=== PATIENT | male | born 1985 | race African-American/Black ===

== ENCOUNTER 2017-06-20 06:41 | Emergency (ER) | payer SELFPAY ==
--- NOTE | 2017-06-20 07:16 | ER Document Report ---
ED General - General Chief Complaint: Epigastric Pain Stated Complaint: EPIGASTRIC PAIN Time Seen by Provider: 06/20/17 07:12 Mode of Arrival: Ambulatory Information source: Patient Cannot obtain history due to: Uncooperative Notes: Patient is a 31-year-old male who presents to the ER today for 2 days of upper abdominal pain and 1 day of headache. Patient states that he has been seen 2 months ago for upper abdominal pain but that it "went away." Patient states that he has never seen a transfer operator for this or had an endoscopy. He admits to a lot of belching over the past 2 days, denies that the pain radiates anywhere. He has not tried anything for the pain. He denies any light or sound sensitivity with his headache, history of migraines. He states that he has been eating and drinking less because it "hurt my stomach." TRAVEL OUTSIDE OF THE [place] IN LAST 30 DAYS: No - Related Data Allergies/Adverse Reactions: No Known Allergies Allergy (Verified 05/06/13 04:40) Past Medical History - General Information source: Patient - Social History Smoking Status: Unknown if Ever Smoked Family History: Reviewed & Not Pertinent - Immunizations Hx Diphtheria, Pertussis, Tetanus Vaccination: Yes Review of Systems - Review of Systems Constitutional: No symptoms reported EENT: No symptoms reported Cardiovascular: No symptoms reported Respiratory: No symptoms reported Gastrointestinal: See HPI Genitourinary: No symptoms reported Male Genitourinary: No symptoms reported Musculoskeletal: No symptoms reported Skin: No symptoms reported Hematologic/Lymphatic: No symptoms reported Neurological/Psychological: See HPI Physical Exam - Notes Notes: PHYSICAL EXAMINATION: GENERAL: Uncomfortable appearing, lying in dark room, but in no acute distress. HEAD: Atraumatic, normocephalic. EYES: Pupils equal round and reactive to light, extraocular movements intact, sclera anicteric, conjunctiva are normal. NECK: Normal range of motion, supple without lymphadenopathy LUNGS: CTAB and equal. No wheezes rales or rhonchi. HEART: Regular rate and rhythm without murmurs ABDOMEN: Soft, epigastric tenderness. No guarding, no rebound BACK: no vertebral tenderness, normal ROM GI/: no CVA tenderness EXTREMITIES: Normal range of motion, no pitting edema. No cyanosis. NEUROLOGICAL: Cranial nerves grossly intact. Normal sensory/motor exams. PSYCH: Normal mood, normal affect. SKIN: Warm, Dry, normal turgor, no rashes or lesions noted Course - Re-evaluation Re-evalutation: 06/20/17 09:55 Patient feels better after GI cocktail, Carafate, and migraine cocktail with IV fluids and Toradol. Patient no longer has a headache and states that the abdominal pain is a lot better. I will send him home with Carafate and Prilosec to follow-up with gastroenterology if symptoms do not resolve. H. pylori is pending at this time. Discharge - Discharge Clinical Impression: Epigastric pain Condition: Stable Disposition: HOME, SELF-CARE Additional Instructions: Return immediately for any new or worsening symptoms. Follow up with primary care provider, call tomorrow to make followup appointment. Prescriptions: Omeprazole Magnesium [Prilosec Otc] 20 mg PO BID #40 tablet. Sucralfate [Carafate 1 gm Tablet] 1 gm PO ACHS #40 tablet Forms: Return to Work Referrals: NATTY MALAVE MD [ACTIVE STAFF] - Follow up as needed
[2017-06-20] MEDS ORDERED: METOCLOPRAMIDE HCL ORAL SOLN 10 MG/10 ML UDCUP PO ONE (07:32)
[2017-06-20] MEDS ORDERED: MAG HYDROX/AL HYDROX/SIMETH SUSP 30 ML UDCUP PO ONE (07:32)
[2017-06-20] MEDS ORDERED: NORMAL SALINE 1000 ML 1,000 ML IV ONE (07:32)
[2017-06-20] MEDS ORDERED: LIDOCAINE 2% VISCOUS SOLN 20 ML UDCUP PO ONE (07:32)
[2017-06-20] MEDS ORDERED: KETOROLAC TROMETHAMINE INJ/PF 30 MG/1 ML SDV IV ONE (07:32)
[2017-06-20] MEDS ORDERED: SUCRALFATE 1 GM TABLET PO ONE (08:49)
[2017-06-20] MEDS ORDERED: FAMOTIDINE 20 MG TABLET PO ONE (08:49)
[2017-06-20 10:01] VITALS: BP 110/80
== END 2017-06-20 10:01 | disposition home or self-care (01) ==
LOC: ER 06:41
DX: R10.13 Epigastric pain (principal); R51 Headache; R14.2 Eructation
CPT/HCPCS: 99284; 96361; 96374; J3490; J1885; J7030

== ENCOUNTER 2017-11-26 13:31 | Emergency (ER) | payer OTHER, MEDICAID ==
[2017-11-26] MEDS ORDERED: RINGERS SOLUTION,LACTATED 1,000 ML IV ONE (14:56)
[2017-11-26 15:30] LABS: ABSOLUTE EOSINOPHILS # (AUTO) 0.1 10^3/uL (0.0-0.6); ABSOLUTE LYMPHOCYTES (AUTO) 1.9 10^3/uL (0.5-4.7); ABSOLUTE MONOCYTES (AUTO) 0.4 10^3/uL (0.1-1.4); ABSOLUTE NEUT (AUTO) 1.9 10^3/uL (1.7-8.2); BASOPHILS % (AUTO) 0.7 % (0-2); EOSINOPHILS % (AUTO) 1.6 % (0-6); HEMOGLOBIN 16.3 g/dL (13.5-17.0); LYMPHOCYTES % (AUTO) 44.9 % (13-45); MEAN CORPUSCULAR HEMOGLOBIN 31.1 pg (27.0-33.4); MEAN CORPUSCULAR VOLUME 91 fl (80-97); MONOCYTES % (AUTO) 8.5 % (3-13); PLATELET COUNT 212 10^3/uL (150-450); RED BLOOD COUNT 5.25 10^6/uL (4.35-5.55); RED CELL DISTRIBUTION WIDTH 13.5 % (11.5-14.0); SEGMENTED NEUTROPHILS % (AUTO) 44.3 % (42-78); TOTAL CELLS COUNTED % (AUTO) 100 %; WHITE BLOOD COUNT 4.2 10^3/uL (4.0-10.5)
[2017-11-26] MEDS ORDERED: KETOROLAC TROMETHAMINE INJ/PF 30 MG/1 ML SDV IV ONE (15:57)
--- NOTE | 2017-11-26 15:59 | ER Document Report ---
ED Medical Screen (RME) - General Chief Complaint: Abdominal Pain Stated Complaint: ABDOMINAL PAIN Time Seen by Provider: 11/26/17 14:55 Notes: 32 years old male presents today with diffuse abdominal discomfort, and dehydration while working outside. No fever chills or other constitutional symptoms. TRAVEL OUTSIDE OF THE [place] IN LAST 30 DAYS: No - Related Data Allergies/Adverse Reactions: No Known Allergies Allergy (Verified 11/26/17 13:31) Past Medical History - Social History Chew tobacco use (# tins/day): No Frequency of alcohol use: Social Drug Abuse: None Renal/ Medical History: Denies: Hx Peritoneal Dialysis - Immunizations Hx Diphtheria, Pertussis, Tetanus Vaccination: Yes Physical Exam - Vital signs Vitals: Temp Pulse Resp BP Pulse Ox 98.2 F 61 14 128/89 H 97 11/26/17 13:37 11/26/17 13:37 11/26/17 13:37 11/26/17 13:37 11/26/17 13:37 Course - Vital Signs Vital signs: Temp Pulse Resp BP Pulse Ox 98.2 F 61 14 128/89 H 97 11/26/17 13:37 11/26/17 13:37 11/26/17 13:37 11/26/17 13:37 11/26/17 13:37 - Laboratory Result Diagrams: 11/26/17 15:05 11/26/17 15:05
[2017-11-26] MEDS ORDERED: DICYCLOMINE HCL INJ 20 MG/2 ML AMPULE IM ONE (16:00)
--- NOTE | 2017-11-26 16:20 | RADIOLOGY REPORT (SQ) ---
EXAM DESCRIPTION: KUB/ABDOMEN (SINGLE VIEW) COMPLETED DATE/TIME: 11/26/2017 4:10 pm REASON FOR STUDY: Abdominal pain COMPARISON: None. NUMBER OF VIEWS: One view. TECHNIQUE: Supine radiographic image of the abdomen acquired. LIMITATIONS: None. FINDINGS: BOWEL GAS PATTERN: Normal bowel gas pattern. No dilated loops. CALCIFICATIONS: No suspicious calcifications. SOFT TISSUES: No gross mass or suggestion of organomegaly. HARDWARE: None in the abdomen. BONES: No acute fracture. No worrisome bone lesions. OTHER: No other significant finding. IMPRESSION: NO RADIOGRAPHIC EVIDENCE FOR ACUTE ABDOMINAL DISEASE. TECHNICAL DOCUMENTATION: JOB ID: [id number] [facility]- All Rights Reserved Reading location - IP/workstation name: [email or web address]
[2017-11-26 16:48] LABS: ALANINE AMINOTRANSFERASE 29 U/L (21-72); ALBUMIN 4.4 g/dL (3.5-5.0); ALKALINE PHOSPHATASE 43 U/L (38-126); ANION GAP 12 (5-19); ASPARTATE AMINO TRANSFERASE 25 U/L (17-59); BILIRUBIN,DIRECT 0.3 mg/dL (0.0-0.4); BILIRUBIN,TOTAL 0.5 mg/dL (0.2-1.3); BLOOD UREA NITROGEN 13 mg/dL (7-20); CALCIUM 9.7 mg/dL (8.4-10.2); CARBON DIOXIDE 28 mmol/L (22-30); CHLORIDE 102 mmol/L (98-107); GLUCOSE 95 mg/dL (75-110); POTASSIUM 4.2 mmol/L (3.6-5.0); SODIUM 142.4 mmol/L (137-145); TOTAL PROTEIN 7.5 g/dL (6.3-8.2)
[2017-11-26 17:04] LABS: URINE AMPHETAMINES SCREEN NEGATIVE; URINE BARBITURATES SCREEN NEGATIVE; URINE BENZODIAZEPINES SCREEN NEGATIVE; URINE COCAINE SCREEN NEGATIVE; URINE MARIJUANA (THC) SCREEN UNCONFIRMED POSITIVE; URINE METHADONE SCREEN NEGATIVE; URINE PHENCYCLIDINE SCREEN NEGATIVE
--- NOTE | 2017-11-26 17:14 | ER Document Report ---
ED General - General Chief Complaint: Abdominal Pain Stated Complaint: ABDOMINAL PAIN Time Seen by Provider: 11/26/17 14:55 Notes: Patient presents with nausea vomiting diarrhea for 3 days. He contributes this to after eating at a restaurant plus an hour later began to develop his symptoms. He has been having intermittent diffuse crampy abdominal pain as well in absence of any dysuria. No cough congestion or chest pain. No known medical problems does not take any medications on a daily basis. Has not been traveling around the country or camping recently. No known sick contacts. 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 TRAVEL OUTSIDE OF THE [place] IN LAST 30 DAYS: No - Related Data Allergies/Adverse Reactions: No Known Allergies Allergy (Verified 11/26/17 13:31) Past Medical History - Social History Smoking Status: Current Every Day Smoker Chew tobacco use (# tins/day): No Frequency of alcohol use: Social Drug Abuse: None Family History: Reviewed & Not Pertinent Patient has suicidal ideation: No Patient has homicidal ideation: No Renal/ Medical History: Denies: Hx Peritoneal Dialysis - Immunizations Hx Diphtheria, Pertussis, Tetanus Vaccination: Yes Review of Systems - Review of Systems Constitutional: No symptoms reported EENT: No symptoms reported Cardiovascular: No symptoms reported Respiratory: No symptoms reported Gastrointestinal: Abdominal pain, Diarrhea, Nausea Genitourinary: No symptoms reported Male Genitourinary: No symptoms reported Musculoskeletal: No symptoms reported Skin: No symptoms reported Hematologic/Lymphatic: No symptoms reported Neurological/Psychological: No symptoms reported Physical Exam - Vital signs Vitals: Temp Pulse Resp BP Pulse Ox 98.2 F 61 14 128/89 H 97 11/26/17 13:37 11/26/17 13:37 11/26/17 13:37 11/26/17 13:37 11/26/17 13:37 - General General appearance: Appears well, Alert - HEENT Head: Normocephalic, Atraumatic Extraocular movements intact: Yes Pupils: PERRL - Respiratory Respiratory status: No respiratory distress Chest status: Nontender Breath sounds: Normal. No: Rales, Rhonchi, Stridor - Cardiovascular Rhythm: Regular Heart sounds: Normal auscultation Murmur: No - Abdominal Inspection: Normal Distension: No distension Bowel sounds: Normal Tenderness: Nontender - Neurological Orientation: AAOx4 Course - Re-evaluation Re-evalutation: 11/26/17 17:11 Benign exam and labs within normal limits are nonsignificant will provide Zofran and instructed patient to take [id number] Pepto-Bismol. Discussed if symptoms are not improving in the next 3 to to be reevaluated or sooner if he begins to have localized constant pain in his abdomen as well as any fevers. Exam not consistent with appendicitis. - Vital Signs Vital signs: Temp Pulse Resp BP Pulse Ox 98.2 F 61 14 128/89 H 97 11/26/17 13:37 11/26/17 13:37 11/26/17 13:37 11/26/17 13:37 11/26/17 13:37 - Laboratory Result Diagrams: 11/26/17 15:05 11/26/17 15:51 Discharge - Discharge Clinical Impression: Diarrhea Nausea & vomiting Qualifiers: Vomiting type: unspecified Vomiting Intractability: non-intractable Qualified Code(s): R11.2 - Nausea with vomiting, unspecified Disposition: HOME, SELF-CARE Instructions: Antinausea Medication ([facility]), Diarrhea, Nonspecific ([facility]), Intravenous (IV) Fluids ([facility]), Vomiting ([facility]) Additional Instructions: Please take [id number] Pepto-Bismol as directed on bottle for diarrhea. Prescriptions: Ondansetron [Zofran Odt 4 mg Tablet] 1 tab PO Q4H PRN #10 tab.rapdis PRN Reason: For Nausea/Vomiting Forms: Return to Work
[2017-11-26 17:16] LABS: APPEARANCE,URINE TURBID; BILIRUBIN,URINE NEGATIVE (NEGATIVE); GLUCOSE, URINE NEGATIVE (NEGATIVE); KETONES,URINE NEGATIVE (NEGATIVE); LEUKOCYTE ESTERASE,URINE NEGATIVE (NEGATIVE); NITRITE,URINE NEGATIVE (NEGATIVE); PROTEIN,URINE NEGATIVE (NEGATIVE); URINE SPECIFIC GRAVITY 1.021; UROBILINOGEN,URINE NEGATIVE mg/dL (<2.0)
[2017-11-26 17:23] LABS: COLOR,URINE YELLOW
[2017-11-26 17:47] VITALS: BP 122/83
== END 2017-11-26 17:47 | disposition home or self-care (01) ==
LOC: ER 13:31
DX: R11.2 Nausea with vomiting, unspecified (principal); R19.7 Diarrhea, unspecified; R10.84 Generalized abdominal pain; F17.200 Nicotine dependence, unspecified, uncomplicated
CPT/HCPCS: 99284; 96372; 96361; 96374; 36415; 85025; 80053; 81001; 80307; 74018; J0500; J1885; J7120

== ENCOUNTER 2017-12-12 17:13 | Emergency (ER) | payer OTHER, MEDICAID ==
[2017-12-12] MEDS ORDERED: KETOROLAC TROMETHAMINE 60 MG/2 ML SDV IM ONE (17:45)
[2017-12-12] MEDS ORDERED: DEXAMETHASONE SOD PHOS INJ 10 MG/1 ML VIAL IM ONE (17:45)
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
[2017-12-12 20:12] VITALS: BP 109/64
== END 2017-12-12 19:55 | disposition home or self-care (01) ==
LOC: ER 17:13
DX: T14.8XXA Other injury of unspecified body region, initial encounter (principal); S60.221A Contusion of right hand, initial encounter; S60.211A Contusion of right wrist, initial encounter; M79.1 Myalgia; R51 Headache; V43.52XA Car driver injured in collision with other type car in traffic accident, initial encounter; F17.210 Nicotine dependence, cigarettes, uncomplicated; Z71.6 Tobacco abuse counseling; Z87.81 Personal history of (healed) traumatic fracture
CPT/HCPCS: 99406; 99284; 96372; 73130; 73110; J1885; J1100

== ENCOUNTER 2018-11-17 01:51 | Emergency (ER) | payer SELFPAY ==
--- NOTE | 2018-11-17 04:05 | ER Document Report ---
HPI - HPI Patient complains to provider of: left great toe foreign body Time Seen by Provider: 11/17/18 04:00 Onset: This morning Onset/Duration: Gradual, Persistent Quality of pain: Achy, Throbbing Severity: Mild Pain Level: 2 Associated Symptoms: denies: Fever Exacerbated by: Standing, Movement, Walking Relieved by: Remaining still Similar symptoms previously: No Recently seen / treated by doctor: No Notes: 33 yr old male pt, with the listed pmh, here for left great toe pain x 1 day. states he was walking barefoot on carpet in his bedroom and stepped on what he thinks was a small piece of glass and has had pain to the bottom of his left great toe since. he feels like the fb or small piece of glass may still be in there as he is still having pain to the area and he has tried to pick it out himself with no success, so he came in for evaluation. no fevers, drainage, or bleeding. no numbness, weakness or tingling. no surgeries on this extremity. otc meds helping and he doesn't want anything here for pain. hasn't sought care until now. no pain anywhere else. pt able to walk. denies intoxication. pain worse with movement and palpation. better with rest. no other fall or trauma or associated sx, last tdap <5 yrs ago. no other associated sx. no blood thinners. no hx of diabetes or asthma. no recent abx or steroids. - ROS Systems Reviewed and Negative: Yes All other systems reviewed and negative - to include 10 systems, unless mentioned in the hpi - DERM Skin Color: Normal, [place] Past Medical History - General Information source: Patient - Social History Smoking Status: Current Every Day Smoker Chew tobacco use (# tins/day): No Frequency of alcohol use: Social Drug Abuse: None Lives with: Spouse/Significant other Family History: Reviewed & Not Pertinent Patient has suicidal ideation: No Patient has homicidal ideation: No - Medical History Medical History: Negative Endocrine Medical History: Reports: None Renal/ Medical History: Denies: Hx Peritoneal Dialysis Traumatic Medical History: Reports: Hx Fractures - Right fifth finger - Immunizations Immunizations up to date: Yes Hx Diphtheria, Pertussis, Tetanus Vaccination: Yes Vertical Provider Document - CONSTITUTIONAL Notes: GENERAL_APPEARANCE: alert and oriented x 3, mood and affect wnl, cooperative, no obvious discomfort. Pleasant, young black male, smiling, speaking in full sentences, in no sign of pain or resp distress, easily sitting up, adult female significant other at bedside VITALS: reviewed, see vital signs table. HEAD: no_swelling\tenderness on the head, normocephalic, atraumatic NECK: supple, no_neck_tenderness. full rom and full strength. HEART: RRR LUNGS: CTAB, good air exchange diffusely BACK: no_back_tenderness EXTREMITIES: good pulse in all extremities, left foot: left great toe-plantar aspect has no erythema, no swelling, mild tenderness and no_abrasions\lacerations other than as noted; however, there is a small superficial excoriated area from where pt has been picking at where he thinks there may be a retained piece of glass or fb, no signs of cellulitis, grossly visible or palpable fb, no drainable fluid collection. no fluctuation, induration, streaking, drainage, or bleeding. Full rom and full strength. Normal gait. 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 brisk cap refill. no other shortening or rotation of the limb or obvious deformities to suggest trauma unless otherwise noted. no other swelling or ttp. no sign of felon, gout, septic joint, compartment syndrome, or pseudogout. no callor. neg lamar sign. neg cody squeeze. no foot drop. no subungual hematoma. no ulcerations or necrosis. SKIN: warm, dry, good_color. no rash. no other grossly visible overlying skin changes to suggest trauma NEURO: motor_intact and sensory_intact in injured_extremity. cranial nerves 2- 12 intact - INFECTION CONTROL TRAVEL OUTSIDE OF THE [place] IN LAST 30 DAYS: No Course - Re-evaluation Re-evalutation: pt here for concern of a possible fb or small shard of glass in the bottom of his left great toe. i do not visualize or palpate any fb on exam. triage left foot xr was neg for anything acute per rad and reviewed by myself. informed pt of findings. advised it is possible a small fb may still be present but it should work its way out on its own over time. advised to monitor for any signs of infection. rice therapy. otc meds for pain. no sign of infection currently. neurononfocal. he is able to ambulate and didn't want any form of immobilization. advised sx care. epson salt soaks. advised to f/u with pcp in 1- 2 days. return for any worsening symptoms. vss. well appearing. satting well on ra. neurononfocal. pt understands and agrees to plan. On reexam, pt remained stable. nontoxic. well appearing. pain controlled. tolerating po. requesting to go home. neurononfocal. afebrile. vss Documentation achieved through voice recording which my lead to some occasional accidental typographical errors. Extensive efforts have been made to proof read documentation to make sure these are the least as possible. Category Date Time Status Left Foot [FOOT LEFT COMPLETE] [RAD] Stat Exams 11/17/18 03:31 Completed - Vital Signs Vital signs: Temp Pulse Resp BP Pulse Ox 98.2 F 74 18 118/87 H 100 11/17/18 03:37 11/17/18 03:37 11/17/18 03:37 11/17/18 03:37 11/17/18 03:37 Temp Pulse Pulse Resp BP BP Pulse Ox 11/17/18 04:58 98.4 F 81 20 126/78 H 100 11/17/18 03:37 98.2 F 74 18 118/87 H 100 11/17/18 01:58 98.8 F 74 16 132/81 H 97 - Diagnostic Test Radiology reviewed: Image reviewed, Reports reviewed Radiology results interpreted by me: Foot X-Ray 11/17/18 03:31 IMPRESSION: Soft tissue injury; else, no acute findings. Discharge - Discharge Clinical Impression: Abrasion, left great toe, initial encounter Condition: Good Disposition: HOME, SELF-CARE Instructions: Abrasions ([facility]) Additional Instructions: Follow-up with PCP in 1 to 2 days. Return for any worsening symptoms. ice, elevate, rest the foot. neosporin to the area. tylenol or motrin as needed for any pain. epson salt soaks. stop picking at the area. Referrals: [facility]SCAR DRIVER PA-C [Primary Care Provider] - Follow up as needed
--- NOTE | 2018-11-17 04:30 | RADIOLOGY REPORT (SQ) ---
EXAM DESCRIPTION: XR FOOT 3 OR MORE VIEWS COMPLETED DATE/TME: 11/17/2018 03:31 CLINICAL HISTORY: 33 years Male, foreign body COMPARISON: None. Findings: Known soft tissue injury; no radioopaque foreign body. Bones, joints, and soft tissues of the LEFT XR FOOT 3 OR MORE VIEWS appear otherwise intact. IMPRESSION: Soft tissue injury; else, no acute findings.
[2018-11-17 04:59] VITALS: BP 126/78
== END 2018-11-17 04:57 | disposition home or self-care (01) ==
LOC: ER 01:51
DX: S90.412A Abrasion, left great toe, initial encounter (principal); M79.675 Pain in left toe(s); X58.XXXA Exposure to other specified factors, initial encounter; F17.200 Nicotine dependence, unspecified, uncomplicated
CPT/HCPCS: 99283

== ENCOUNTER 2019-07-15 06:53 | Emergency (ER) | payer SELFPAY ==
[2019-07-15] MEDS ORDERED: KETOROLAC TROMETHAMINE 60 MG/2 ML SDV IM ONE (08:18)
--- NOTE | 2019-07-15 08:24 | ER Document Report ---
ED Neck/Back Problem - General Chief Complaint: Back Pain Stated Complaint: BACK PAIN Time Seen by Provider: 07/15/19 08:08 Primary Care Provider: OSCAR DRIVER PA-C [Primary Care Provider] - Follow up as needed Notes: CHIEF COMPLAINT: Right lateral back pain for 1 day HPI: 34-year-old male presenting for evaluation of right lateral back pain for 1 day. Was moving a mattress yesterday. Did not have an acute injury. States he started having discomfort yesterday evening. Did not take any anti- inflammatories. Took an unknown muscle relaxer 1 time yesterday evening without resolution of his pain so decided to come to the emergency department today. States it hurts to bend or move. Denies incontinence of urine or bowel. Denies weakness in the extremities. ROS: See HPI - all other systems were reviewed and are otherwise negative Constitutional: no fever GI: no vomiting, no diarrhea, no abdominal pain : no dysuria Integumentary: no rash Allergy: no hives Musculoskeletal: no extremity pain or swelling, positive back pain Neurological: no numbness/tingling, no weakness MEDICATIONS: I agree with the patient medications as charted by the RN. ALLERGIES: I agree with the allergies as charted by the RN. PAST MEDICAL HISTORY/PAST SURGICAL HISTORY: Reviewed and agree as charted by RN. SOCIAL HISTORY: Reviewed and agree as charted by RN. FAMILY HISTORY: No significant familial comorbid conditions directly related to patient complaint EXAM: Reviewed vital signs as charted by RN. CONSTITUTIONAL: Alert and oriented and responds appropriately to questions. Well-appearing; well-nourished, mild distress secondary to pain HEAD: Normocephalic; atraumatic EYES: Conjunctivae clear, sclerae non-icteric ENT: normal nose; no rhinorrhea; moist mucous membranes NECK: Supple without meningismus; non-tender; no cervical lymphadenopathy, no masses CARD: RRR; no murmurs, no clicks, no rubs, no gallops; symmetric distal pulses RESP: Normal chest excursion without splinting or tachypnea; breath sounds clear and equal bilaterally; no wheezes, no rhonchi, no rales, pulse oximetry 98% on room air not hypoxic ABD/GI: Normal bowel sounds; non-distended; soft, non-tender, no rebound, no guarding; no palpable organomegaly or masses. BACK: The back appears normal and is non-tender to palpation over the cervical thoracic and lumbar spine. There is mild right lateral lower thoracic muscular tenderness on palpation, there is no CVA tenderness EXT: Normal ROM in all joints; non-tender to palpation; no cyanosis, no effusions, no edema SKIN: Normal color for age and race; warm; dry; good turgor; no acute lesions noted NEURO: Moves all extremities equally; Motor and sensory function intact. Strength equal 5/5 bilateral upper and lower extremities. Sensation intact and equal bilateral upper and lower extremities. PSYCH: The patient's mood and manner are appropriate. Grooming and personal hygiene are appropriate. MDM: 34-year-old male with muscular back pain from possible injury moving mouna ething yesterday. He is neurologically intact no indication for imaging at this time. Will give Toradol in the emergency department plan to place patient on anti-inflammatories and a muscle relaxer with orthopedic referral TRAVEL OUTSIDE OF THE [place] IN LAST 30 DAYS: No - Related Data Allergies/Adverse Reactions: No Known Allergies Allergy (Verified 11/26/17 13:31) Past Medical History - Social History Smoking Status: Unknown if Ever Smoked Family History: Reviewed & Not Pertinent Patient has suicidal ideation: No Patient has homicidal ideation: No Renal/ Medical History: Denies: Hx Peritoneal Dialysis Musculoskeletal Medical History: Reports Hx Musculoskeletal Deformity, Reports Hx Musculoskeletal Trauma Traumatic Medical History: Reports: Hx Fractures - Right fifth finger - Immunizations Immunizations up to date: Yes Hx Diphtheria, Pertussis, Tetanus Vaccination: Yes Physical Exam - Vital signs Vitals: Temp Pulse Resp BP Pulse Ox 97.6 F 58 L 20 118/54 L 100 07/15/19 06:53 07/15/19 06:53 07/15/19 06:53 07/15/19 06:53 07/15/19 06:53 Course - Vital Signs Vital signs: Temp Pulse Resp BP Pulse Ox 97.6 F 58 L 20 118/54 L 100 07/15/19 06:53 07/15/19 06:53 07/15/19 06:53 07/15/19 06:53 07/15/19 06:53 Discharge - Discharge Clinical Impression: Acute thoracic back pain Qualifiers: Back pain laterality: right Qualified Code(s): M54.6 - Pain in thoracic spine Condition: Stable Disposition: HOME, SELF-CARE Additional Instructions: 1. Warm heat to the lower back twice daily 2. no heavy lifting for 2-3 days 3. medications as prescribed, no driving on muscle relaxers 4. follow up with orthopedics for further evaluation and treatment as needed for any continuing pain or problems, call for appt. 5. return to the ER for any onset of incontinence of urine, fever > 101 or worsening condition Prescriptions: Cyclobenzaprine HCl [Flexeril 10 mg Tablet] 10 mg PO TIDP PRN #15 tab PRN Reason: Naproxen 500 mg PO BID PRN #14 tablet PRN Reason: Referrals: OSCAR DRIVER PA-C [Primary Care Provider] - Follow up as needed NADEEN WOODS JR, DO [ACTIVE PROVISIONAL STAFF] - Follow up as needed
[2019-07-15 09:27] VITALS: BP 122/74
== END 2019-07-15 09:25 | disposition home or self-care (01) ==
LOC: ER 06:53
DX: M54.6 Pain in thoracic spine (principal); M79.18 Myalgia, other site
CPT/HCPCS: 99283; 96372; J1885